=== PATIENT | female | born 1955 | race American Indian/Alaskan Native ===

== ENCOUNTER 2016-11-14 15:20 | Outpatient (CLI) | payer OTHER ==
--- NOTE | 2016-11-14 16:27 | Mammography Report ---
Screening mammogram: Routine views demonstrates scattered nodularity predominantly in the upper outer right breast. Mild architectural distortion is noted in the upper left breast consistent with prior surgical site. The overall fibroglandular pattern is generally symmetric and otherwise unremarkable. Scattered benign-appearing calcifications. The patient is unaware of recent prior mammogram locations. CAD used. Impression: No suspicious findings. Recommendation: Annual mammogram followup. BI-RADS CATEGORY: 2 = Benign ACR BI-RADS MAMMOGRAPHIC CODES: 0 = Needs additional imaging evaluation; 1 = Negative; 2 = Benign; 3 = Probably benign; 4 = Suspicious; 5 = Malignant; 6 = Known biopsy-proven malignancy COMMENT: 1. Dense breast tissue, i.e., adenosis, fibrocystic changes, etc., may obscure an underlying neoplasm. 2. Approximately 10% of cancers are not detected with mammography. 3. A negative mammography report should not delay biopsy if a clinically suspicious mass is present.
== END 2016-11-14 15:21 | disposition home or self-care (01) ==
LOC: MAMMO 15:20
DX: Z12.31 Encounter for screening mammogram for malignant neoplasm of breast (principal)
CPT/HCPCS: 77067; G0202